=== PATIENT | female | born 1945 | race Caucasian/White ===

== ENCOUNTER → 2017-02-21 | Outpatient (CLI) | payer MEDICARE, MEDICAID ==
[~2017-02-21] MED LIST: AMAN100T PO; AMOX500C2 PO; CIPR500T4 PO; CITA20TA4 PO; CLIN300C3 PO; FESO8TAB PO; ILOP6TAB PO; MIRA50TA PO; NF-ESOM40C PO; PERM60CR4 TD; PRD20T PO; QUET50TA55 PO; RISP2TAB3 PO; RT-ALBUINH IH; TLT2T PO; TOLT2CAP8 PO; TOLT2TAB5 PO; TRH2T PO; WARF2.5T PO; WARF2.5T56 PO
--- NOTE | 2017-02-25 14:00 | Diagnostic Imaging Report ---
EXAMINATION: Bilateral screening mammogram 2D views with tomosynthesis. The current study was also evaluated with a Computer Aided Detection (CAD) system. INDICATION: Screening. PERSONAL HISTORY: No current complaints stated on the questionnaire. COMPARISON: 03/16/2014. FINDINGS: The breasts are composed of scattered fibroglandular densities. There are scattered benign-appearing calcifications seen. Allowing for technique and positional differences, no suspicious change is seen. IMPRESSION: No significant change. ACR BI-RADS Category 2: Benign findings. Result letter will be mailed to the patient. Note: At least 10% of breast cancer is not imaged by mammography. Dictated by: Dictated on workstation # [id number]
== END ==
LOC: RAD 13:29
PROVIDERS: ATTEND Nurse Practitioner Community Health
DX: Z12.31 Encounter for screening mammogram for malignant neoplasm of breast (principal)
CPT/HCPCS: 77067

== ENCOUNTER → 2020-12-30 | Outpatient (CLI) | payer MEDICARE, MEDICAID ==
[~2020-12-30] MED LIST changes: +QUET50TA22 PO; -QUET50TA55 PO; -RISP2TAB3 PO; +RISP2TAB84 PO
[2020-12-30 03:51] LABS: BILIRUBIN,URINE NEGATIVE (NEGATIVE); CLARITY,URINE CLOUDY; COLOR,URINE YELLOW; GLUCOSE, URINE (UA) NEGATIVE (NEGATIVE); KETONES,URINE NEGATIVE (NEGATIVE); LEUKOCYTE ESTERASE ,URINE 3+ (NEGATIVE); NITRITE,URINE NEGATIVE (NEGATIVE); PROTEIN,URINE NEGATIVE (NEGATIVE)
[2020-12-30 04:09] LABS: BACTERIA,URINE NEGATIVE /HPF; RENAL EPITHELIAL CELLS,URINE 0-2 /HPF; WBC,URINE 50-100 /HPF
== END ==
LOC: LABNPT 03:27
PROVIDERS: ATTEND Internal Medicine
DX: N39.0 Urinary tract infection, site not specified (principal)
CPT/HCPCS: 81000; 87088

== ENCOUNTER 2021-10-19 04:48 | Emergency (ER) | payer MEDICARE, MEDICAID ==
[~2021-10-19 04:48] MED LIST changes: -QUET50TA22 PO; +QUET50TA23 PO
--- NOTE | 2021-10-19 04:59 | ED Head Injury ---
General Chief Complaint: Trauma-Non Activation Stated Complaint: FALL W/LAC Source: patient (VERY POOR HISTORIAN--PT WITH DEMENTIA AND SCHIZOPHRENIA), skilled nursing records (DUANE POLLARD DO) History of Present Illness Date Seen by Provider: Oct 19, 2021 Time Seen by Provider: 04:50 Initial Comments PT ARRIVES VIA EMS FROM [facility] CERVICAL COLLAR IN PLACE PT WAS FOUND LAYING ON THE FLOOR AND YELLING-- FOUND BY ASSISTED STAFF IS UKNOWN WHEN PT WAS LAST CHECKED ON PT HAS BLEEDING FROM BACK OF HEAD PT IS ON ELIQUIS FOR ATRIAL FIBRILLATION C/O PAIN TO BACK OF HEAD, TO HER LOWER BACK/BUTTOCKS AREA, AND ALSO TO RIGHT UPPER ARM NO OTHER RELIABLE IS OBTAINABLE AT THIS TIME PCP: DR. YACNY KNOWLES (DUANE POLLARD DO) Allergies and Home Medications Allergies Coded Allergies: promethazine (Unverified Allergy, Unknown, 12/27/13) Patient Home Medication List Home Medication List Reviewed: Yes (RONNIE CENTENO) Albuterol Sulfate (Proventil Hfa) 6.7 Gm Hfa.aer.ad, 2 GM IH Q4H PRN for SHORTNESS OF BREATH Prescribed by: ANIKET SHELL on 03/21/16 1404 Amantadine HCl (Amantadine) 100 Mg Tablet, 2 TAB PO UD, (Reported) Entered as Reported by: JEANNE WESTON on 02/09/162229 Amoxicillin (Amoxicillin) 500 Mg Capsule, 1,000 MG PO BID Prescribed by: ANIKET SHELL on 03/21/16 1404 Citalopram Hydrobromide (Citalopram Hbr) 20 Mg Tablet, 20 MG PO DAILY, (Re ported) Entered as Reported by: MARTITA VOSS on 12/28/13 1136 Esomeprazole Magnesium (Nexium) 40 Mg Cap, 1 CAP PO UD, (Reported) Entered as Reported by: JEANNE WESTON on 02/09/162229 Mirabegron (Myrbetriq) 50 Mg Tab.er.24h, 1 TAB PO UD, (Reported) Entered as Reported by: JEANNE WESTON on 02/09/162229 Permethrin (Permethrin) 60 Gm Cream..g., 1 GM TD UD, (Reported) Entered as Reported by: JEANNE WESTON on 02/09/162229 Prednisone (Prednisone) 20 Mg Tab, 40 MG PO DAILY Prescribed by: ANIKET SHELL on 03/21/16 1404 Quetiapine Fumarate (Quetiapine Fumarate) 50 Mg Tablet, 1 TAB PO UD, (Reported) Entered as Reported by: JEANNE WESTON on 02/09/162229 Risperidone (Risperidone) 2 Mg Tablet, 1 TAB PO UD, (Reported) Entered as Reported by: JEANNE WESTON on 02/09/162229 Tolterodine Tartrate (Tolterodine Tartrate) 2 Mg Tablet, 2 MG PO DAILY, (Reported) Entered as Reported by: SHORTY CORREA on 05/07/14 100 Warfarin Sodium (Warfarin Sodium) 2.5 Mg Tablet, 2.5 MG PO DAILY, (Reported) Entered as Reported by: SHORTY CORREA on 05/07/14 100 Review of Systems Review of Systems Constitutional: no symptoms reported Eyes: No Symptoms Reported Ears, Nose, Mouth, Throat: see HPI Respiratory: no symptoms reported; No short of breath Cardiovascular: no symptoms reported; No chest pain Gastrointestinal: no symptoms reported; No abdominal pain, No nausea, No vomiting Genitourinary: other (HAS BEEN INCONTINENT OF URINE) Musculoskeletal: see HPI Skin: see HPI Psychiatric/Neurological: See HPI Endocrine: No Symptoms Reported Hematologic/Lymphatic: See HPI (DUANE POLLARD DO) Past Fnbszoa-Xblsqd-Vmlaej Hx Patient Social History Tobacco Use?: No Use of E-Cig and/or Vaping dev: No (RONNIE CENTENO) Immunizations Up To Date Tetanus Booster (TDap): Unknown PED Vaccines UTD: No (DUANE POLLARD DO) Seasonal Allergies Seasonal Allergies: No (DUANE POLLARD DO) Past Medical History Surgeries: Yes Breast Asthma Currently Using CPAP: No Currently Using BIPAP: No Cardiac: Yes Atrial Fibrillation, Deep Vein Thrombosis, Hypertension Neurological: Yes Dementia Reproductive Disorders: No POLYSOMNOGRAPHY TECH History: Menopausal Genitourinary: Yes UTI-Chronic Gastrointestinal: Yes Gastroesophageal Reflux, Hiatal Hernia Musculoskeletal: Yes (FALLS, GAIT DISTURBANCE) Psychosocial: Yes (DEMENTIA) Anxiety, Bipolar, Schizophrenia, Depression Integumentary: No Blood Disorders: Yes (DVT'S) Adverse Reaction/Blood Tranf: No (DUANE POLLARD DO) Family Medical History Cardiovascular disease 19 FATHER G8 BROTHER G8 BROTHER Fibrocystic disease of breast 19 MOTHER (BREAST CANCER) Psychosocial problem daughter (DOWN'S SYNDROME) No Pertinent Family Hx (DUANE POLLARD DO) Physical Exam Vital Signs Vital Signs - First Documented 10/19/21 04:53 Temp 35.6 Pulse 84 Resp 16 B/P (MAP) 119/83 (95) Pulse Ox 96 O2 Delivery Room Air (RONNIE CENTENO) Vital Signs Capillary Refill : (DUANE POLLARD DO) Height, Weight, BMI Height: 5'5" Weight: 245lbs. 9.0oz. 111.960673zs; BMI Method:Stated General Appearance: WD/WN, no apparent distress, other (SOMEWHAT ANXIOUS, CONSTANT LEG AND FEET MOVEMENTS. ) HEENT: PERRL/EOMI Neck: other (IN CERVICAL COLLAR; DOES APPEAR TO HAVE SMALL LACERATION NEAR CROWN--NOT ACTIVELY BLEEDING AT THIS TIME) Cardiovascular: regular rate, rhythm, no murmur Respiratory: chest non-tender, normal breath sounds Gastrointestinal: non tender, soft Back: other (LOWER LUMBAR TENDERNESS) Extremities: no pedal edema, no calf tenderness, normal capillary refill, other (RIGHT MID HUMERUS TENDERNESS. NO DEFORMITY OR BRUISING. FREELY MOVES RIGHT ARM. NO HIP TENDERNESS. ) Psychiatric: alert, other (PT TALKS LUCID IN ONE SENTENCE AND THEN NEXT SENTENCE IS COMPLETELY NON-RELATED , SUCH "I'VE BEEN KIDNAPPED" OR " MY 2 HUSBANDS " ) Crainal Nerves: normal hearing, PERRL, other (SPEECH SOMEWHAT DIFFICULT DUE TO RECENT DENTAL EXTRACTIONS, HAS A COUPLE OF REMAINING TEETH IN MOUTH. ) Motor/Sensory: no motor deficit, no sensory deficit Skin: normal color, warm/dry (DUANE POLLARD DO) Kristy Coma Score Best Eye Response: (4) Open Spontaneously Best Verbal Response: (4) Confused Conversation Best Motor Response: (6) Obeys Commands Kristy Total: 14 (DUANE POLLARD DO) Progress/Results/Core Measures Results/Orders Lab Results Laboratory Tests Test 10/19/21 04:58 Range/Units White Blood Count 5.2 4.3-11.0 10^3/uL Red Blood Count 4.63 3.80-5.11 10^6/uL Hemoglobin 14.5 11.5-16.0 g/dL Hematocrit 44 35-52 % Mean Corpuscular Volume 94 80-99 fL Mean Corpuscular Hemoglobin 31 25-34 pg Mean Corpuscular Hemoglobin Concent 33 32-36 g/dL Red Cell Distribution Width 13.8 10.0-14.5 % Platelet Count 169 130-400 10^3/uL Mean Platelet Volume 10.5 9.0-12.2 fL Immature Granulocyte % (Auto) 0 % Neutrophils (%) (Auto) 37 L 42-75 % Lymphocytes (%) (Auto) 46 H 12-44 % Monocytes (%) (Auto) 13 H 0-12 % Eosinophils (%) (Auto) 4 0-10 % Basophils (%) (Auto) 1 0-10 % Neutrophils # (Auto) 1.9 1.8-7.8 10^3/uL Lymphocytes # (Auto) 2.4 1.0-4.0 10^3/uL Monocytes # (Auto) 0.7 0.0-1.0 10^3/uL Eosinophils # (Auto) 0.2 0.0-0.3 10^3/uL Basophils # (Auto) 0.1 0.0-0.1 10^3/uL Immature Granulocyte # (Auto) 0.0 0.0-0.1 10^3/uL Prothrombin Time 15.4 H 12.2-14.7 SEC INR Comment 1.2 0.8-1.4 Activated Partial Thromboplast Time 38 H 24-35 SEC Sodium Level 144 135-145 MMOL/L Potassium Level 3.7 3.6-5.0 MMOL/L Chloride Level 106 98-107 MMOL/L Carbon Dioxide Level 25 21-32 MMOL/L Anion Gap 13 5-14 MMOL/L Blood Urea Nitrogen 5 L 7-18 MG/DL Creatinine 0.79 0.60-1.30 MG/DL Estimat Glomerular Filtration Rate 77 BUN/Creatinine Ratio 6 Glucose Level 85 70-105 MG/DL Calcium Level 9.4 8.5-10.1 MG/DL Corrected Calcium 9.6 8.5-10.1 MG/DL Total Bilirubin 0.7 0.1-1.0 MG/DL Aspartate Amino Transf (AST/SGOT) 19 5-34 U/L Alanine Aminotransferase (ALT/SGPT) 20 0-55 U/L Alkaline Phosphatase 67 40-136 U/L Total Protein 7.3 6.4-8.2 GM/DL Albumin 3.8 3.2-4.5 GM/DL Valproic Acid (Depakene) Level 74.3 50.0-100.0 UG/ML (RONNIE CENTENO) Medications Given in ED (RONNIE CENTENO) Vital Signs/I&O (RONNIE CENTENO) Progress Progress Note : Progress Note 0600--PT HAS JUST RETURNED FROM XRAY DEPT. CARE TURNED OVER TO DR. CENTENO, XRAYS AND CT REPORTS PENDING (DUANE POLLARD DO) Progress Note : Time: 06:05 Progress Note Assumed care of the patient at shift change. Patient is resting comfortably in bed not vocalizing any complaints. C-collar cleared clinically and radiogra phically. Patient is a small, closed blunt laceration and hematoma over the left parietal occipital scalp which is not bleeding is only about a millimeter or 2 wide and does not require any extra closure. She says she is feeling good and ready to go home. We offered her something to drink which she declined stating she has water at home. (RONNIE CENTENO) Diagnostic Imaging Diagonstic Imaging: CT Plain Films/CT/US/NM/MRI: other (Thoracolumbar) Comments [facility], [place] NAME: JESSICASVETA [facility] REC#: [id number] PT STATUS: REG ER : 1945 PHYSICIAN: DUANE POLLARD DO ADMIT DATE: 10/19/21/ER Signed Date of Exam:10/19/21 CT THORACIC/LUMBAR SPINE WO PROCEDURE: CT thoracic and lumbar spine without contrast. TECHNIQUE: Multiple contiguous axial images were obtained through the thoracic and lumbar spine without the use of intravenous contrast. Sagittal and coronal reformations were then performed. All CT scans use one or more of the following dose optimizing techniques: automated exposure control, MA and/or KvP adjustment based on a patient size and exam type, or iterative reconstruction. INDICATION: Back injury from a fall Vertebral body height and alignment appears normal. There are degenerative disc changes at each disc space in the lumbar spine. There are some sclerosis of the opposing vertebral body endplates at L1-L2 and L2-L3 consistent with Modic change. There is no bony spinal stenosis. There are no compression fractures seen. IMPRESSION: Diffuse degenerative changes of the thoracic and lumbar spine. No fractures or acute abnormality seen. Dictated by: Dictated on workstation # [id number] Dict: 10/19/2148 Trans: 10/19/2151 [facility] [phone] Interpreted by: FLORENTINO LAZARO MD Electronically signed by: FLORENTINO LAZARO MD 10/19/21550 Reviewed: Reviewed by Me Diagonstic Imaging: CT Plain Films/CT/US/NM/MRI: c-spine, head Comments [facility] [place] NAME: SVETA LOPEZ [facility] REC#: [id number] PT STATUS: REG ER : 1945 PHYSICIAN: DUANE POLLARD DO ADMIT DATE: 10/19/21/ER Signed Date of Exam:10/19/21 CT HEAD/CERVICAL SPINE WO PROCEDURE: CT head and CT cervical spine without contrast. TECHNIQUE: Multiple contiguous axial images were obtained through the brain and cervical spine without the use of intravenous contrast. Sagittal and coronal reformations through the cervical spine were then performed. Auto Exposure Controls were utilized during the CT exam to meet ALARA standards for radiation dose reduction. INDICATION: Head injury from a fall CT head without contrast There is generalized atrophy. There are no masses or hemorrhages. There are no extra-axial fluid collections. There are some decreased density in the periventricular white matter. There are no skull fractures seen. IMPRESSION: Senescent changes of the brain with diffuse cerebral degeneration and chronic ischemic leukoencephalopathy. There are inflammatory changes of the right maxillary sinus. No acute intracranial abnormalities seen. CT cervical spine: Odontoid is intact. Atlantoaxial and basicervical relationships appear normal. There are some degenerative changes of the atlantoaxial joint. Vertebral body height and alignment are normal. There is disc space narrowing C5-C6 and C6-C7 with slight spondylolisthesis at C4-C5 which is likely compensatory. Posterior elements are intact. There is no fracture or prevertebral soft tissue swelling. IMPRESSION: There are degenerative changes of the cervical spine. No acute abnormality seen. Dictated by: Dictated on workstation # [id number] Dict: 10/19/21 0546 Trans: 10/19/2148 [facility] [id number] Interpreted by: FLORENTINO LAZARO MD Electronically signed by: FLORENTINO LAZARO MD 10/19/21547 Reviewed: Reviewed by Me Diagonstic Imaging: Xray Plain Films/CT/US/NM/MRI: chest Comments [facility] [place] NAME: SVETA LOPEZ [facility] REC#: [id number] PT STATUS: REG ER : 1945 PHYSICIAN: DUANE POLLARD DO ADMIT DATE: 10/19/21/ER Signed Date of Exam:10/19/21 CHEST 1 VIEW, AP/PA ONLY Indication: Chest injury from a fall Portable chest 5:25 AM Heart and mediastinum are normal. Lungs are clear. There are no effusions or pneumothoraces. IMPRESSION: No acute abnormalities in the chest Dictated by: Dictated on workstation # [id number] Dict: 10/19/21543 Trans: 10/19/21543 [facility] [id number] Interpreted by: FLORENTINO LAZARO MD Electronically signed by: FLORENTINO LAZARO MD 10/19/21543 Reviewed: Reviewed by Al Diagonstic Imaging: Xray Plain Films/CT/US/NM/MRI: other (humerus) Comments [facility] [place] NAME: SVETA LOPEZ [facility] REC#: [id number] PT STATUS: REG ER : 1945 PHYSICIAN: DUANE POLLARD DO ADMIT DATE: 10/19/21/ER Signed Date of Exam:10/19/21 HUMERUS, RIGHT, 2 VIEWS Indication: Right arm injury from a fall 2 views the right humerus do not show any acute fractures or dislocation. The acromiohumeral space is narrowed consistent with chronic rotator cuff pathology. An old healed fracture of the humeral neck cannot be excluded. IMPRESSION: Acromial humeral joint space narrowing. Questionable old healed fracture of the right humeral neck. No acute abnormality seen. Dictated by: Dictated on workstation # [id number] Dict: 10/19/21543 Trans: 10/19/21545 [facility] [phone] Interpreted by: FLORENTINO LAZARO MD Electronically signed by: FLORENTINO LAZARO MD 10/19/2146 Reviewed: Reviewed by Me Diagonstic Imaging: Xray Plain Films/CT/US/NM/MRI: pelvis Comments [facility] [place] NAME: SVETA LOPEZ [facility] REC#: [id number] PT STATUS: REG ER : 1945 PHYSICIAN: DUANE POLLARD DO ADMIT DATE: 10/19/21/ER Signed Date of Exam:10/19/21 PELVIS Indication: Pelvic injury from a fall AP view pelvis shows no fracture or dislocation. IMPRESSION: Negative pelvis Dictated by: Dictated on workstation # [id number] Dict: 10/19/2143 Trans: 10/19/2144 [facility] [id number] Interpreted by: FLORENTINO LAZARO MD Electronically signed by: FLORENTINO LAZAOR MD 10/19/21 0544 Reviewed: Reviewed by Me (RONNIE CENTENO) Departure Impression Primary Impression: Fall Qualified Codes: W19.XXXA - Unspecified fall, initial encounter Additional Impression: Traumatic hematoma of scalp Qualified Codes: S00.03XA - Contusion of scalp, initial encounter Disposition: 01 HOME, SELF-CARE Condition: Stable Departure-Patient Inst. Decision time for Depature: 06:17 (RONNIE CENTENO) Referrals: YANCY KNOWLES MD (PCP/Family) Primary Care Physician Patient Instructions: Preventing Falls ED Add. Discharge Instructions: Ice pack to the head 20 minutes on every 2 hours for the first 2 days as necessary for swelling and pain. Plenty of fluids to drink. Make sure she has a night light available to decrease her risk of falling. All discharge instructions reviewed with patient and/or family. Voiced understanding. DUNAE POLLARD DO Oct 19, 2021 04:59 RONNIE CENTENO Oct 19, 2021 06:10
[2021-10-19] MEDS ORDERED: TETANUS,DIPTH,PERTUSS P/F (BOOSTRIX) 0.5 ML VIAL IM ONE (05:00)
[2021-10-19 05:07] LABS: BASOPHILS # (AUTO) 0.1 10^3/uL (0.0-0.1); BASOPHILS % (AUTO) 1 % (0-10); EOSINOPHILS # (AUTO) 0.2 10^3/uL (0.0-0.3); EOSINOPHILS % (AUTO) 4 % (0-10); HEMATOCRIT 44 % (35-52); HEMOGLOBIN 14.5 g/dL (11.5-16.0); LYMPHOCYTES # (AUTO) 2.4 10^3/uL (1.0-4.0); LYMPHOCYTES % (AUTO) 46 % (12-44); MEAN CORPUSCULAR HEMOGLOBIN 31 pg (25-34); MEAN CORPUSCULAR HGB CONC 33 g/dL (32-36); MEAN CORPUSCULAR VOLUME 94 fL (80-99); MEAN PLATELET VOLUME 10.5 fL (9.0-12.2); MONOCYTES # (AUTO) 0.7 10^3/uL (0.0-1.0); MONOCYTES % (AUTO) 13 % (0-12); NEUTROPHILS # (AUTO) 1.9 10^3/uL (1.8-7.8); NEUTROPHILS % (AUTO) 37 % (42-75); PLATELET COUNT 169 10^3/uL (130-400); WHITE BLOOD COUNT 5.2 10^3/uL (4.3-11.0)
[2021-10-19 05:16] LABS: ALBUMIN 3.8 GM/DL (3.2-4.5); POTASSIUM 3.7 MMOL/L (3.6-5.0)
[2021-10-19 05:18] LABS: CALCIUM 9.4 MG/DL (8.5-10.1)
[2021-10-19 05:19] LABS: TOTAL PROTEIN 7.3 GM/DL (6.4-8.2)
[2021-10-19 05:20] LABS: INR 1.2 (0.8-1.4); PROTHROMBIN TIME PATIENT 15.4 SEC (12.2-14.7)
[2021-10-19 05:21] LABS: BILIRUBIN,TOTAL 0.7 MG/DL (0.1-1.0)
[2021-10-19 05:22] LABS: CREATININE SERUM 0.79 MG/DL (0.60-1.30)
[2021-10-19 05:31] LABS: VALPROIC ACID 74.3 UG/ML (50.0-100.0)
--- NOTE | 2021-10-19 05:45 | Diagnostic Imaging Report ---
Indication: Pelvic injury from a fall AP view pelvis shows no fracture or dislocation. IMPRESSION: Negative pelvis Dictated by: Dictated on workstation # [id number]
--- NOTE | 2021-10-19 05:45 | Diagnostic Imaging Report ---
Indication: Chest injury from a fall Portable chest 5:25 AM Heart and mediastinum are normal. Lungs are clear. There are no effusions or pneumothoraces. IMPRESSION: No acute abnormalities in the chest Dictated by: Dictated on workstation # [id number]
--- NOTE | 2021-10-19 05:47 | Diagnostic Imaging Report ---
Indication: Right arm injury from a fall 2 views the right humerus do not show any acute fractures or dislocation. The acromiohumeral space is narrowed consistent with chronic rotator cuff pathology. An old healed fracture of the humeral neck cannot be excluded. IMPRESSION: Acromial humeral joint space narrowing. Questionable old healed fracture of the right humeral neck. No acute abnormality seen. Dictated by: Dictated on workstation # [id number]
--- NOTE | 2021-10-19 05:49 | Diagnostic Imaging Report ---
PROCEDURE: CT head and CT cervical spine without contrast. TECHNIQUE: Multiple contiguous axial images were obtained through the brain and cervical spine without the use of intravenous contrast. Sagittal and coronal reformations through the cervical spine were then performed. Auto Exposure Controls were utilized during the CT exam to meet ALARA standards for radiation dose reduction. INDICATION: Head injury from a fall CT head without contrast There is generalized atrophy. There are no masses or hemorrhages. There are no extra-axial fluid collections. There are some decreased density in the periventricular white matter. There are no skull fractures seen. IMPRESSION: Senescent changes of the brain with diffuse cerebral degeneration and chronic ischemic leukoencephalopathy. There are inflammatory changes of the right maxillary sinus. No acute intracranial abnormalities seen. CT cervical spine: Odontoid is intact. Atlantoaxial and basicervical relationships appear normal. There are some degenerative changes of the atlantoaxial joint. Vertebral body height and alignment are normal. There is disc space narrowing C5-C6 and C6-C7 with slight spondylolisthesis at C4-C5 which is likely compensatory. Posterior elements are intact. There is no fracture or prevertebral soft tissue swelling. IMPRESSION: There are degenerative changes of the cervical spine. No acute abnormality seen. Dictated by: Dictated on workstation # [id number]
--- NOTE | 2021-10-19 05:52 | Diagnostic Imaging Report ---
PROCEDURE: CT thoracic and lumbar spine without contrast. TECHNIQUE: Multiple contiguous axial images were obtained through the thoracic and lumbar spine without the use of intravenous contrast. Sagittal and coronal reformations were then performed. All CT scans use one or more of the following dose optimizing techniques: automated exposure control, MA and/or KvP adjustment based on a patient size and exam type, or iterative reconstruction. INDICATION: Back injury from a fall Vertebral body height and alignment appears normal. There are degenerative disc changes at each disc space in the lumbar spine. There are some sclerosis of the opposing vertebral body endplates at L1-L2 and L2-L3 consistent with Modic change. There is no bony spinal stenosis. There are no compression fractures seen. IMPRESSION: Diffuse degenerative changes of the thoracic and lumbar spine. No fractures or acute abnormality seen. Dictated by: Dictated on workstation # [id number]
[2021-10-19 06:29] VITALS: BP 142/97
== END 2021-10-19 07:37 | disposition home or self-care (01) ==
LOC: EDUNIT# 04:48 → ER 04:50
DX: S01.01XA Laceration without foreign body of scalp, initial encounter (principal); M79.621 Pain in right upper arm; M54.50 Low back pain, unspecified; F20.9 Schizophrenia, unspecified; F03.90 Unspecified dementia, unspecified severity, without behavioral disturbance, psychotic disturbance, mood disturbance, and anxiety; I48.91 Unspecified atrial fibrillation; Z79.01 Long term (current) use of anticoagulants; W19.XXXA Unspecified fall, initial encounter; Y92.129 Unspecified place in nursing home as the place of occurrence of the external cause
CPT/HCPCS: 36415; 70450; 71045; 72125; 72128; 72131; 72170; 73060; 80053; 80164; 85025; 85610; 85730; 90715; 93041